=== PATIENT | female | born 1995 | race Asian ===

== ENCOUNTER → 2019-02-08 | Outpatient (CLI) | payer OTHER ==
[2019-02-08 14:57] LABS: BASO % 0.3 % (0.0-1.0); EOS % 0.5 % (0.0-3.0); HEMOGLOBIN 12.2 g/dl (12.0-15.5); LYMPH # 1.9 10^3/uL (1.5-6.5); MEAN CORPUSCULAR HEMOGLOBIN 31.6 pg (27.0-33.0); MEAN CORPUSCULAR HGB CONC 33.9 g/dl (32.0-36.5); MEAN CORPUSCULAR VOLUME 93.3 fl (80.0-96.0); MONO # 0.4 10^3/uL (0.0-0.8); MONO % 6.4 % (0.0-5.0); NEUTROPHILS # 4.2 10^3/uL (1.8-7.7); NEUTROPHILS % 63.6 % (36.0-66.0); PLATELET COUNT, AUTOMATED 285 10^3/uL (150-450); RED BLOOD COUNT 3.86 10^6/uL (4.00-5.40); WHITE BLOOD COUNT 6.6 10^3/uL (4.0-10.0)
[2019-02-08 15:25] LABS: CHLAMYDIA DNA AMPLIFICATION POSITIVE (NEGATIVE); GC DNA AMPLIFICATION NEGATIVE (NEGATIVE)
[2019-02-08 15:32] LABS: HEPATITIS C VIRUS ABY INDEX 0.1 INDEX (<0.8); HIV 1&2 SCREEN CENTAUR NEGATIVE (NEGATIVE); RUBELLA IgG QUALITATIVE IMMUNE (IMMUNE)
[2019-02-08 16:36] LABS: SICKLE CELL SCREEN NEGATIVE (NEGATIVE)
== END ==
LOC: M SMT 11:16
PROVIDERS: ATTEND Advanced Practice Midwife
DX: Z34.81 Encounter for supervision of other normal pregnancy, first trimester (principal); Z3A.01 Less than 8 weeks gestation of pregnancy

== ENCOUNTER → 2019-03-08 | Outpatient (REF) | payer OTHER ==
[2019-03-08 15:17] LABS: CHLAMYDIA DNA AMPLIFICATION NEGATIVE (NEGATIVE); GC DNA AMPLIFICATION NEGATIVE (NEGATIVE)
== END ==
LOC: M LAB REF 12:58
PROVIDERS: ATTEND Advanced Practice Midwife
DX: Z34.81 Encounter for supervision of other normal pregnancy, first trimester (principal)

== ENCOUNTER 2019-03-24 20:09 | Emergency (ER) | payer OTHER ==
[~2019-03-24] VITALS: Ht 165.1 cm; Wt 70.5 kg
[2019-03-24] MEDS ORDERED: AUGM875T28 PO (22:13)
[2019-03-24] MEDS ORDERED: AUGMENTIN 875 MG TAB PO ONE (22:15)
[2019-03-24 22:21] VITALS: BP 126/66
== END 2019-03-24 22:31 | disposition home or self-care (01) ==
LOC: M ED 20:09
DX: O23.42 Unspecified infection of urinary tract in pregnancy, second trimester (principal); Z3A.14 14 weeks gestation of pregnancy; Z87.891 Personal history of nicotine dependence

== ENCOUNTER → 2019-04-05 | Outpatient (REF) | payer OTHER ==
[~2019-04-05] MED LIST: AUGM875T28 PO
== END ==
LOC: M LAB REF 13:17
PROVIDERS: ATTEND Advanced Practice Midwife
DX: Z34.82 Encounter for supervision of other normal pregnancy, second trimester (principal); Z3A.00 Weeks of gestation of pregnancy not specified

== ENCOUNTER → 2019-04-14 | Outpatient (CLI) | payer OTHER | LOC: M WUC 13:08 | PROVIDERS: ATTEND Advanced Practice Midwife | DX: Z13.79 Encounter for other screening for genetic and chromosomal anomalies (principal) ==

== ENCOUNTER → 2019-05-03 | Outpatient (CLI) | payer OTHER | LOC: M SMT 10:55 | PROVIDERS: ATTEND Advanced Practice Midwife | DX: O36.8921 Maternal care for other specified fetal problems, second trimester, fetus 1 (principal) ==

== ENCOUNTER → 2019-07-06 | Outpatient (CLI) | payer OTHER ==
[2019-07-06 14:17] LABS: BASO # 0.1 10^3/uL (0.0-0.2); BASO % 0.5 % (0.0-1.0); EOS # 0.1 10^3/uL (0.0-0.5); EOS % 0.6 % (0.0-3.0); HEMATOCRIT 31.7 % (36.0-47.0); HEMOGLOBIN 10.1 g/dl (12.0-15.5); LYMPH # 2.2 10^3/uL (1.5-5.0); LYMPH % 21.2 % (24.0-44.0); MEAN CORPUSCULAR HEMOGLOBIN 29.5 pg (27.0-33.0); MEAN CORPUSCULAR HGB CONC 31.9 g/dl (32.0-36.5); MEAN CORPUSCULAR VOLUME 92.7 fl (80.0-96.0); MONO # 0.6 10^3/uL (0.0-0.8); MONO % 5.7 % (0.0-5.0); NEUTROPHILS # 7.4 10^3/uL (1.5-8.5); NEUTROPHILS % 70.2 % (36.0-66.0); PLATELET COUNT, AUTOMATED 269 10^3/uL (150-450); RED BLOOD COUNT 3.42 10^6/uL (4.00-5.40); WHITE BLOOD COUNT 10.5 10^3/uL (4.0-10.0)
== END ==
LOC: M PLALAB 10:05
PROVIDERS: ATTEND Advanced Practice Midwife
DX: Z34.93 Encounter for supervision of normal pregnancy, unspecified, third trimester (principal)

== ENCOUNTER → 2019-08-31 | Outpatient (REF) | payer OTHER | LOC: M PLALAB 12:20 | PROVIDERS: ATTEND Advanced Practice Midwife | DX: Z34.83 Encounter for supervision of other normal pregnancy, third trimester (principal) ==

== ENCOUNTER 2019-09-28 17:23 | Inpatient (IN) | payer OTHER ==
[~2019-09-28] VITALS: Ht 165.1 cm; Wt 86.5 kg
[2019-09-28] VITALS (9 sets, daily range): BP systolic 90–113; BP diastolic 48–73
[2019-09-28] MEDS: LR 1,000 ML IV SCH ×2 (18:30→21:38)
[2019-09-28] MEDS ORDERED: OXYTOCIN DRIP 30 UNITS in IV 1 EA IV SCH (18:30)
[2019-09-28 18:33] LABS: HEMATOCRIT 30.2 % (36.0-47.0); MEAN CORPUSCULAR HEMOGLOBIN 28.5 pg (27.0-33.0); MEAN CORPUSCULAR HGB CONC 33.1 g/dl (32.0-36.5); PLATELET COUNT, AUTOMATED 286 10^3/uL (150-450); RED BLOOD COUNT 3.51 10^6/uL (4.00-5.40); WHITE BLOOD COUNT 8.5 10^3/uL (4.0-10.0)
--- NOTE | 2019-09-28 18:47 | HPEPDOC ---
Obstetrical History & Physical General Date of Admission Sep 28, 2019 at 17:23 History of Present Illness Patient is a 24 yo at 40 and 6/7 wks by LMP c/w 7 and 6/7wk US. Admit for induction of labor and expect delivery by . Pain management per patient preference, which was discussed with her. I discussed risks of with patient of failure with section, distress, bleeding, infection, , vaginal or perineal or neighboring organ tear. Currently, fetus is reassuring. GBS is negative, no need for antibiotics. Chief Complaint: Induction of labor Information Provided By: Patient Past Medical History Past Obstetrical History : Past Obstetrical History: Multigravida Date of Delivery: October 26, 2016 Gestation: 39.3 Type of Delivery: Ceserean section Sex of : Male Weight of Infant (grams): 3827 Complications: No ANESTHESIA ATTENDING History: Ovarian cysts (right ovarian cyst removed at time of C/S) Past Medical History Medical History none Surgical History: section, Other (cyst removal) Family History Significant Family History: Diabetes, Heart disease, Hypertension Family History FOB with history of sickle cell. Social History * Smoker: former Smoker Alcohol: Denies Drugs: denies Abuse Violence Screening Have you been hit/kicked/slapp: No Have you been sexually assault: No Allergies Coded Allergies: No Known Allergies (Unverified , 03/24/19) Medications No Active Prescriptions or Reported Meds Physical Examination Physical Examination GENERAL: Alert and oriented times three. BREAST: . ABDOMEN: Gravid and non-tender to touch. FETUS: Is vertex (VTX) by sterile vaginal examination (SVE), fetus is vertex (VTX) by Eduardo. HEART RATE: Regular rate and rhythm. LUNGS: Clear to auscultation (CTA). EXTREMITIES: No edema. Laboratory Data 24H [facility] Laboratory Tests 2 09/28/19 17:34: Serology Scanned Report Hepatitis B Testing Urine Culture: Other (klebsiella pneumonia 50,000; repeat urine culture negative) Pertinent Laboratoy Data Blood Type: O+ RBC Antibody Screen: Negative HIV: Negative Hepatitis B: Negative Hepatitis C: Negative Rapid Plasma Reagin: Nonreactive Rubella: Immune Varicella: Unknown Chlamydia/Gonorrhea: Positive (Chlamydia positive, gonorrhea negative; treated with keflex, azithromycin) Group B Streptococcus: Negative Quad Screen Test: Declined Cystic Fibrosis: Unknown Glucose Tolerance Test: 99 Anatomy Ultrasound Ultrasound Date: May 11, 2019 Placenta Location: Anterior Estimated Weight (grams): 159 Vaginal Examination Dilation: 1cm Effacement: 50% Station: -2 Cervical Consistency: other (moderate) Cervical Position: Posterior Presentation: Cephalic presentation Assessment Heart Patterns: Tachycardia Assessment/Plan Assessment Patient is a 24-year-old (G)2 (P)1001 at 40+6/7 weeks by 7+6/7 -week ultrasound. Presents to Labor and Delivery (L&D) for induction of labor. Plan Admit and orient. Bi Manager and consent. Diet: regular Group B Streptococcus (GBS) negative. Labs and intravenous (IV) per unit protocol. Counseled on Pitocin and induction of labor (IOL). Lactated Ringers (LR): At 125 mL/hr. Anticipate [normal spontaneous delivery ()]. C/S as appropriate. GME ATTESTATION GME ATTESTATION My faculty preceptor for this patient encounter was physically present during the encounter and was fully available. All aspects of the patient interview, examination, medical decision making process, and medical care plan development were reviewed and approved by the faculty preceptor. The faculty preceptor is aware and concurs with the plan as stated in the body of this note and will attest to such by his/her cosignature. PRABHAKAR VILLARREAL DO Sep 28, 2019 18:47
[2019-09-28] MEDS ORDERED: PROMETHAZINE INJ 25 MG/ML VIAL (J2550) IV ONE (21:30)
[2019-09-28] MEDS ORDERED: BUTORPHANOL 2 MG/ML INJ (J0595) IV ONE (21:30)
[2019-09-29] VITALS (47 sets, daily range): BP systolic 88–116; BP diastolic 49–70
[2019-09-29] MEDS ORDERED: FENTANYL 2MCG/ML ROPIVACAINE 0.2% IN 0.9% NACL 100ML IVBAG As Ordered ONE (01:23)
[2019-09-29] MEDS ORDERED: ONDANSETRON 4MG/2ML VIAL (J2405) IV PRN ×3 (01:40→16:30)
[2019-09-29] MEDS ORDERED: ePHEDrine SULFATE 25 MG/5 ML(5MG/ML) SYRINGE IV PRN (01:40)
[2019-09-29] MEDS ORDERED: EPIDURAL/PCA KEYS XX PRN (01:40)
[2019-09-29] MEDS ORDERED: EPIDURAL COMMENT XX SCH (01:40)
[2019-09-29] MEDS ORDERED: diphenhydrAMINE INJ 50MG/ML VIAL (J1200) IV PRN ×2 (01:40→15:00)
[2019-09-29] MEDS ORDERED: LACTATED RINGER'S 1000 ML IV PRN (01:40)
[2019-09-29] MEDS ORDERED: NALOXONE INJ 0.4 MG/1 ML VIAL (J2310) IV PRN ×3 (01:40→15:00)
[2019-09-29] MEDS ORDERED: REFRIGERATOR IV KEYS XX PRN (01:40)
[2019-09-29] MEDS: FENTANYL/ROPIVACAINE/NACL BAG 100 ML EPIDURAL SCH ×2 (02:11→10:16)
[2019-09-29] MEDS: LR 1,000 ML IV SCH (02:30)
--- NOTE | 2019-09-29 11:50 | IPNPDOC ---
Text Note Date of Service The patient was seen on 09/29/19. NOTE Progress Pitocin @ 20mu Cat I tracing UC 2-4 minutes apart SVE /-3, no change from previous reported exam Dr Rodriguez notified. Reassess 1-2 hours. VS,Fishbone, I+O VS, Fishbone, I+O Laboratory Tests 09/28/19 18:18 Vital Signs Date Time Temp Pulse Resp B/P (MAP) Pulse Ox O2 Delivery O2 Flow Rate FiO2 09/29/19 10:33 100 18 107/55 (72) 09/29/19 10:02 98.4 09/29/19 04:30 98 Room Air I&O- Last 24 Hours up to 6 AM 09/29/19 06:00 Intake Total 950 ml Balance 950 ml Ramya Alonso CNM Sep 29, 2019 11:50
[2019-09-29] MEDS ORDERED: LACTATED RINGER'S 1000 ML IV STA (13:36)
--- NOTE | 2019-09-29 13:40 | IPNPDOC ---
Text Note Date of Service The patient was seen on 09/29/19. NOTE Progress Pitocin remains @ 20mu UC 3-4 minutes apart x 60 seconds Cat I tracing. Cervix unchanged over [address] Rodriguez aware. C/S called. VS,Fishbone, I+O VS, Fishbone, I+O Laboratory Tests 09/28/19 18:18 Vital Signs Date Time Temp Pulse Resp B/P (MAP) Pulse Ox O2 Delivery O2 Flow Rate FiO2 09/29/19 13:04 91 18 107/55 (72) 09/29/19 12:32 98.8 09/29/19 04:30 98 Room Air I&O- Last 24 Hours up to 6 AM 09/29/19 06:00 Intake Total 950 ml Balance 950 ml Ramya Alonso CNM Sep 29, 2019 13:40
[2019-09-29] MEDS ORDERED: ceFAZolin SOD 2 GM in IV 1 EA IV ONE (13:45)
[2019-09-29] MEDS ORDERED: BICITRA 30ML SOLN UDC PO ONE (13:45)
[2019-09-29] MEDS ORDERED: AZITHROMYCIN INJ 500 MG, VIAL MATE ADAPTER 1 EACH in D5W 250 ML IV ONE (14:15)
[2019-09-29] MEDS ORDERED: LIDOCAINE PRES-FREE 2% 10ML AMP As Ordered ONE (14:22)
[2019-09-29] MEDS ORDERED: OXYTOCIN 30 UNITS IN 0.9% NaCl 500ML IV BAG (J2590) As Ordered ONE (14:25)
[2019-09-29] MEDS ORDERED: PHENYLephrine HCL 500 MCG/5 ML (100MCG/ML) SYRINGE (J2370) As Ordered ONE (14:35)
[2019-09-29] MEDS ORDERED: MORPHINE PRES-FREE INJ 10 MG/10 ML VIAL (J2274) As Ordered ONE (14:49)
[2019-09-29] MEDS ORDERED: KETOROLAC 60 MG/2 ML VIAL (J1885) As Ordered ONE (14:50)
[2019-09-29] MEDS ORDERED: ONDANSETRON 4MG/2ML VIAL (J2405) As Ordered ONE (14:50)
[2019-09-29] MEDS ORDERED: METOCLOPRAMIDE INJ 10MG/2ML VIAL (J2765) IV PRN ×2 (15:00→16:30)
[2019-09-29] MEDS ORDERED: NALBUPHINE HCL 10 MG/ML AMP (J2300) IV PRN (15:00)
[2019-09-29] MEDS ORDERED: OXYTOCIN DRIP 30 UNITS in IV 1 EA IV SCH (15:52)
[2019-09-29] MEDS ORDERED: LR 1,000 ML IV SCH ×2 (15:52→16:30)
[2019-09-29] MEDS ORDERED: MEASLES,MUMPS,RUBELLA VACCINE INJ (MMR-II) (90707) SC SCH (16:00)
[2019-09-29] MEDS ORDERED: ONDANSETRON 4 MG TAB (S0181) PO PRN (16:00)
[2019-09-29] MEDS ORDERED: ACETAMINOPHEN 500 MG TAB PO PRN (16:00)
[2019-09-29] MEDS ORDERED: PERCOCET 5MG/325MG TAB PO PRN ×3 (16:00→16:30)
[2019-09-29] MEDS ORDERED: RHOGAM 300 MCG (1500 IU) INJ (J2790) IM SCH (16:00)
[2019-09-29] MEDS ORDERED: MEPERIDINE INJ 25 MG/ML VIAL (J2175) IV PRN (16:30)
[2019-09-29] MEDS ORDERED: fentaNYL 100 MCG/2 ML INJECTION (J3010) IV PRN (16:30)
[2019-09-29] MEDS: KETOROLAC 30 MG/ML VIAL (J1885) IV SCH (21:41)
[2019-09-29] MEDS: DOCUSATE SODIUM 100 MG CAP PO PRN (21:41)
[2019-09-30 02:00] VITALS: BP 103/58
[2019-09-30] MEDS: KETOROLAC 30 MG/ML VIAL (J1885) IV SCH ×2 (03:30→09:54)
[2019-09-30 06:00] VITALS: BP 98/49
[2019-09-30 06:06] LABS: HEMATOCRIT 24.4 % (36.0-47.0); MEAN CORPUSCULAR HEMOGLOBIN 27.9 pg (27.0-33.0); MEAN CORPUSCULAR VOLUME 87.1 fl (80.0-96.0); PLATELET COUNT, AUTOMATED 213 10^3/uL (150-450); WHITE BLOOD COUNT 13.2 10^3/uL (4.0-10.0)
[2019-09-30 06:18] LABS: HEMOGLOBIN 7.8 g/dl (12.0-15.5)
--- NOTE | 2019-09-30 06:42 | IPNPDOC ---
Text Note Date of Service The patient was seen on 09/30/19. NOTE SUBJECT: Patient is a 24 yo G2 now P2002 who is POD#1 status post RLTCS at 41+ 0/7 weeks' gestation of a 8 pound 0 ounce female . She delivered, at approximately 1454 hours on 09/29/2019, doing well day #1. She has been ambulating, voiding spontaneously without issue and tolerating regular diet. Reports her pain is well controlled. OBJECTIVE: VITAL SIGNS: Within normal limits, afebrile. Alert and oriented times three. Breath sounds clear to auscultation. Heart rate: Regular rate and rhythm, no murmurs, rubs or gallops. Abdomen: Fundus firm at U. Soft, nontender. Incision dressing is dry and intact ASSESSMENT: Patient is a 24 yo G2 now P2002 who is POD#1 status post RLTCS at 41+0/7 weeks' gestation of a 8 pound 0 ounce female . She delivered, at approximately 1454 hours on 09/29/2019, doing well day #1. Vitals within normal limits, afebrile, hemodynamically stable with no evidence of infection. PLAN: 1. Continue routine care, hgb stable at 7.8, anticipate D/C Wednesday. 2. Tylenol and Motrin for pain. 3. Encourage ambulation. 4. Incision check in 2 weeks, routine PP visit in 6 weeks in clinic. VS,Fishbone, I+O VS, Fishbone, I+O Laboratory Tests 09/30/19 05:46 Vital Signs Date Time Temp Pulse Resp B/P (MAP) Pulse Ox O2 Delivery O2 Flow Rate FiO2 09/30/19 06:00 97.9 83 18 98/49 (65) 98 Room Air I&O- Last 24 Hours up to 6 AM 09/30/19 06:00 Intake Total 4698.8 ml Output Total 6800 ml Balance -2101.2 ml GME ATTESTATION GME ATTESTATION My faculty preceptor for this patient encounter was physically present during the encounter and was fully available. All aspects of the patient interview, examination, medical decision making process, and medical care plan development were reviewed and approved by the faculty preceptor. The faculty preceptor is aware and concurs with the plan as stated in the body of this note and will attest to such by his/her cosignature. IGNACIO RAVI D.O. Sep 30, 2019 06:42
[2019-09-30] MEDS: PRENATAL VITAMINS CHEWABLE TABLET PO SCH (09:00)
[2019-09-30] MEDS ORDERED: INFLUENZA QUADRIVALENT PF VACCINE 0.5ML SYRINGE (90686) IM ONE (09:00)
[2019-09-30 10:12] VITALS: BP 102/55
[2019-09-30 14:24] VITALS: BP 100/55
[2019-09-30 17:49] VITALS: BP 98/52
[2019-09-30] MEDS: IBUPROFEN 800 MG TAB PO SCH (18:30)
[2019-09-30] MEDS: DOCUSATE SODIUM 100 MG CAP PO PRN (21:12)
[2019-09-30 22:07] VITALS: BP 106/57
[2019-10-01] MEDS: IBUPROFEN 800 MG TAB PO SCH ×2 (01:47→08:03)
[2019-10-01 01:58] VITALS: BP 96/50
[2019-10-01 05:52] VITALS: BP 116/59
[2019-10-01] MEDS: PRENATAL VITAMINS CHEWABLE TABLET PO SCH (08:02)
[2019-10-01] MEDS ORDERED: INFLUENZA QUADRIVALENT PF VACCINE 0.5ML SYRINGE (90686) IM ONE (10:00)
[2019-10-01 10:21] VITALS: BP 115/56
[2019-10-01] MEDS ORDERED: IBUP80TA PO (10:47)
[2019-10-01] MEDS ORDERED: DOCU100C16 PO (10:47)
[2019-10-01] MEDS ORDERED: PERCOCET PO (10:47)
== END 2019-10-01 13:15 | disposition home or self-care (01) | DRG 773 ==
LOC: M LDI 17:23 → M OBS 09-29 17:30
PROVIDERS: ADMIT Specialist; ATTEND Specialist
PROC: 3E033VJ Introduction of Other Hormone into Peripheral Vein, Percutaneous Approach (ICD-10-PCS; 2019-09-28)
PROC: 10D00Z1 Extraction of Products of Conception, Low, Open Approach (ICD-10-PCS; principal; 2019-09-29 14:35)
DX: O48.0 Post-term pregnancy (principal); Z37.0 Single live birth; Z3A.40 40 weeks gestation of pregnancy; O34.211 Maternal care for low transverse scar from previous cesarean delivery; O62.0 Primary inadequate contractions

== ENCOUNTER → 2020-11-06 | Outpatient (CLI) | payer OTHER ==
[~2020-11-06] MED LIST changes: +DOCU100C16 PO; +IBUP80TA PO; +PERCOCET PO
[2020-11-06 11:39] LABS: HEMATOCRIT 39.3 % (36.0-47.0); HEMOGLOBIN 12.7 g/dl (12.0-15.5); MEAN CORPUSCULAR HGB CONC 32.3 g/dl (32.0-36.5); MEAN CORPUSCULAR VOLUME 92.7 fl (80.0-96.0); PLATELET COUNT, AUTOMATED 300 10^3/uL (150-450); RED BLOOD COUNT 4.24 10^6/uL (4.00-5.40)
[2020-11-06 11:46] LABS: APPEARANCE, URINE CLEAR (CLEAR); BACTERIA, URINE AUTO 1+ (NEGATIVE); BILIRUBIN, URINE AUTO NEGATIVE (NEGATIVE); BLOOD, URINE BLOOD NEGATIVE (NEGATIVE); COLOR, URINE YELLOW (YELLOW); GLUCOSE, URINE (UA) AUTO NEGATIVE (NEGATIVE); KETONE, URINE AUTO NEGATIVE (NEGATIVE); LEUKOCYTE ESTERASE, URINE AUTO NEGATIVE (NEGATIVE); MUCUS, URINE SMALL (NEGATIVE); NITRITE, URINE AUTO NEGATIVE (NEGATIVE); PROTEIN, URINE AUTO NEGATIVE (NEGATIVE); RBC, URINE AUTO 1 /HPF (0-3); SPECIFIC GRAVITY URINE AUTO 1.018 (1.002-1.035); SQUAMOUS EPITHELIAL CELL UR AU 0 /HPF (0-6); UROBILINOGEN, URINE AUTO 0.2 mg/dL (0.0-2.0); WBC, URINE AUTO 5 /HPF (0-3)
[2020-11-06 11:51] LABS: URINE PREG TEST NEGATIVE (NEGATIVE)
[2020-11-06 12:00] LABS: INR 0.94; PROTHROMBIN TIME 12.8 SECONDS (12.5-14.3)
[2020-11-06 12:01] LABS: PARTIAL THROMBOPLASTIN TIME 27.5 SECONDS (24.2-38.5)
[2020-11-06 12:19] LABS: ALBUMIN 3.8 GM/DL (3.2-5.2); ALT/SGPT 24 U/L (12-78); BILIRUBIN,TOTAL 0.6 MG/DL (0.2-1.0); BLOOD UREA NITROGEN 10 MG/DL (7-18); CALCIUM LEVEL 9.1 MG/DL (8.5-10.1); CARBON DIOXIDE LEVEL 27 MEQ/L (21-32); CHLORIDE LEVEL 108 MEQ/L (98-107); CREATININE FOR GFR 0.65 MG/DL (0.55-1.30); GLOMERULAR FILTRATION RATE > 60.0 (>60); GLUCOSE, FASTING 96 MG/DL (70-100); POTASSIUM SERUM 4.4 MEQ/L (3.5-5.1); SODIUM LEVEL 140 MEQ/L (136-145); TOTAL PROTEIN 7.5 GM/DL (6.4-8.2)
[2020-11-06 12:49] LABS: HEMOGLOBIN A1c 5.1 %
[2020-11-06 13:52] LABS: HIV 1&2 SCREEN CENTAUR NEGATIVE (NEGATIVE)
--- NOTE | 2020-11-06 16:43 | ECGEPIP ---
[facility] Test Date: 2020-11-06 Pat Name: HANNAH SINGLETON Department: Room: - Gender: Female Manufacture Specialist: isi : [id number] Requested By: Adalid Snowden Order Number: [id number] Reading MD: Servando Rocha Measurements Intervals [place] Rate: 60 P: 59 [place]: 164 QRS: 64 QRSD: 96 T: 34 QT: 426 QTc: 426 Interpretive Statements Normal sinus rhythm Within normal limits. No prior ECG available for comparison at the time of interpretation. Electronically Signed on 11-06-2020 16:43:11 EDT by Servando Rocha
== END ==
LOC: M LAB 11:01
PROVIDERS: ATTEND Plastic Surgery
DX: Z01.818 Encounter for other preprocedural examination (principal)

== ENCOUNTER → 2021-02-08 | Outpatient (REF) | payer OTHER | LOC: M LAB REF 17:59 | PROVIDERS: ATTEND Physician Assistant | DX: J02.9 Acute pharyngitis, unspecified (principal) ==